=== PATIENT | female | born 1950 | race Caucasian/White ===

== ENCOUNTER 2018-05-07 10:56 | Day surgery (SDC) | payer MEDICARE, OTHER, SELFPAY ==
--- NOTE | 2018-05-07 | PATH_ITS ---
[facility] Accession Number: [id number] . 01 Material submitted: . PART A: ASCENDING COLON POLYP PART B: TRANSVERSE COLON POLYP . 02 Diagnosis: A. Ascending Colon, Polyp, Biopsy: Tubular adenoma. . B. Transverse Colon, Polyp, Biopsy: Tubular adenoma. MRV/05/08/2018 . 02 Electronically signed: . Nicolasa Nunes MD, Pathologist NPI- [id number] . 01 Gross description: . Received two formalin-filled containers, both labeled with the patient's name: . A. In a container labeled ascending colon polyp, the specimen consists of a 0.3 cm portion of tissue, entirely submitted in cassette A. B. In a container labeled transverse colon polyp, the specimen consists of a 0.7 cm portion of tissue, entirely submitted in cassette B. ([id number]) /FRR . 02 Pathologist provided ICD-10: D12.2, D12.3 . 02 CPT . 330892, [id number] Performed at: 01 [facility] [address] [facility], [place], [place] [id number] MD Mahesh Valentine MD Phone: [phone] Performed at: 02 [facility] [address] [place], [place] [id number] MD Nicolasa Nunes MD Phone: [phone]
[2018-05-07] MEDS: SODIUM CHLORIDE 0.9% 1,000 ML 100 ML IV (11:48)
[2018-05-07] MEDS: AMPICILLIN 2,000 MG in SODIUM CHLORIDE 0.9% 100 ML 200 ML IV (11:50)
[2018-05-07 11:51] VITALS: BP 148/92; PULSE 76; RESP 16; TEMP 37.4; O2SAT 98; BMI 21.4
--- NOTE | 2018-05-07 13:04 | PM.HP.1 ---
History of Present Illness Date Patient Seen: 05/07/18 Time Patient Seen: 13:04 Chief complaint: [id number] COLONOSCOPY/EGD W/POSS BX Narrative: dyspepsia, abdominal pain, abnormal CT abdomen Patient History Family & Social History Social History: household members none Meds Home Medications Medication Instructions Recorded Confirmed Type [CALCIUM + D] 1 tab PO QDAY #0 05/31/17 History [FLAX SEED OIL] 3,000 mg PO QDAY #0 05/31/17 History [GARLIC OIL] 1,000 mg PO QDAY #0 05/31/17 History [GLUCOSAMINE/CONDROIT] 1,500 - 1,700 tab PO QDAY #0 05/31/17 History cholecalciferol (vitamin D3) 800 unit PO QDAY #0 05/31/17 History [Vitamin D3] diclofenac sodium [Voltaren] 1 demetrius TOPICAL QDAYP PRN #0 05/31/17 History fluticasone [Flonase Allergy 1 spray INTRANASAL BID #0 05/31/17 History Relief] hydrocodone-acetaminophen 0.5 tab PO PRN PRN #0 MDD 2 05/31/17 05/07/18 History lutein 20 mg PO QDAY #0 05/31/17 History lysine [L-Lysine] 500 mg PO QDAYP #0 05/31/17 History Acetaminophen Extra Strength 500 mg PO TID 05/07/18 05/07/18 History Fish Oil 1,000 mg PO DAILY 05/07/18 05/07/18 History Multi Vitamin 1 tab PO DAILY 05/07/18 05/07/18 History diphenhydramine HCl 50 mg PO DAILY 05/07/18 05/07/18 History fexofenadine 180 mg PO DAILY PRN 05/07/18 05/07/18 History hyoscyamine sulfate 0.125 mg PO Q6H PRN 05/07/18 05/07/18 History omeprazole 20 mg PO BID 05/07/18 05/07/18 History simethicone 125 mg PO TID 05/07/18 05/07/18 History turmeric 500 mg PO DAILY 05/07/18 05/07/18 History Allergies Allergy/AdvReac Type Severity Reaction Status Date / Time hydromorphone [HYDROMORPHONE] Allergy Unknown Unverified 08/07/17 11:47 meperidine [From DEMEROL] Allergy Unknown Unverified 08/07/17 11:47 Review of Systems Review of Systems All systems reviewed & are unremarkable except as noted in HPI and below Exam Vital Signs (past 8 hours): - 05/07/18 11:51 Temperature 99.3 F Pulse Rate 76 Respiratory Rate 16 Blood Pressure 148/92 H Pulse Oximetry 98 Oxygen Delivery Method Room Air Narrative Exam Narrative: gen aaox3, nad heent anicteric cv rrr, n murmurs pulm ctab abd s, nd, nabs, mildly tender in RLQ ext 2+ pulses, no edema Assessment & Plan Plan: Assessment/Plan Narrative: dyspepsia, abdominal pain, abnormal CT abd EGD and colonoscopy
--- NOTE | 2018-05-07 14:03 | PM.OP.ENDO ---
Operative Date/Time/Diagnoses Date of procedure: 05/07/18 Time of procedure: 01:55 Procedure & Clinicians Study performed: EGD Same procedure as scheduled: Yes Indications: Dyspepsia, abdominal pain, suspected GERD Surgeon: Terrence Martines Procedure Notes Procedure in detail: Sedation: 5 mg of Versed, 150 mcg fentanyl Prior to the procedure, a history and physical was performed and patient medications and allergies were reviewed. Preprocedure nursing history and assessment was reviewed. Patient identification and proposed procedure were verified by the physician and the nurse in the room. The physical status of the patient was reassessed after the procedure. After informed consent was obtained including risks, benefits, and alternatives, scope was passed under direct vision. Throughout the procedure, the patient's blood pressure, pulse, and oxygen saturations were monitored continuously. The upper endoscope was introduced through the mouth and advanced to the 2nd portion of the duodenum. Retroflexion was performed in the stomach. The patient tolerated the procedure well Esophagus: The esophagus was grossly unremarkable. Z-line was regular and located at 40 cm from the incisors Stomach: The stomach was grossly normal in appearance. Duodenum: The examined portion of the duodenum was normal appearing Sedation minutes: 10 Complications: other (No complications. No blood loss.) Plan for aftercare: Colonoscopy today Resume home medications Antireflux diet and lifestyle Return to GI clinic as previously scheduled
[2018-05-07] MEDS: fentaNYL 250 MCG/5 ML INJ IV (14:30)
[2018-05-07] MEDS: MIDAZOLAM 5 MG/5 ML VIAL IV (14:30)
[2018-05-07 14:36] VITALS: BP 116/70; PULSE 66; RESP 17; O2SAT 97
[2018-05-07 14:41] VITALS: BP 117/69; PULSE 68; RESP 15; O2SAT 96
--- NOTE | 2018-05-07 14:43 | P.OP.ENDO_ITS ---
Operative Date/Time/Diagnoses Date of procedure: 05/07/18 Time of procedure: 13:55 Procedure & Clinicians Study performed: Colonoscopy with cold snare and biopsy Same procedure as scheduled: Yes Indications: abnormal CT of the abdomen, RLQ abdominal pain Surgeon: Terrence Martines Procedure Notes Procedure in detail: Prior to the procedure, history and physical was performed , and patient medications and allergies removed. Preprocedure nursing history and assessment was reviewed. Patient identification and proposed procedure were verified by the physician and nurse in the procedure room. Physical status of the patient was reassessed after the procedure. After informed consent was obtained including risks, benefits, and alternatives, the scope was passed under direct vision. Throughout the procedure, the patient's blood pressure, pulse, and oxygen saturations were monitored continuously. The pediatric colonoscope was introduced through the anus and advanced to the terminal ileum and cecum. The patient tolerated the procedure with some associated discomfort. Bowel prep was deemed good and adequate to detect polyps greater than 5 mm. Digital rectal examination and perianal examination were unremarkable. Retroflexion in the rectum revealed grade 2 internal hemorrhoids. The entire colon was markedly tortuous. There was significant looping in the sigmoid colon. A 3 mm sessile polyp was noted in the ascending colon. This was removed with a Jumbo biopsy forceps and retrieved A 7 mm semi sessile polyp was noted in the sigmoid colon and was removed with a cold snare and retrieved. The terminal ileum was normal appearing. Sedation minutes: 26 Complications: other (No complications. Estimated blood loss minimal) Plan for aftercare: Follow-up pathology results Repeat colonoscopy in 5 years for colon cancer screening based on pathology results Resume home medications Resume previous diet Discharge home with escort
[2018-05-07 14:46] VITALS: BP 116/72; PULSE 68; RESP 15; O2SAT 96
[2018-05-07 14:52] VITALS: BP 120/68; PULSE 75; RESP 12; O2SAT 98
[2018-05-07 15:27] VITALS: BP 119/75; PULSE 76; RESP 16; TEMP 36.8; O2SAT 97
== END 2018-05-07 15:32 | disposition home or self-care (01) ==
PROVIDERS: PCP Family Medicine; Visit Provider Internal Medicine
PROC: 0DJ08ZZ Inspection of Upper Intestinal Tract, Via Natural or Artificial Opening Endoscopic (ICD-10-PCS; CPT 43235; principal; 2018-05-07 13:00)
PROC: 0DJD8ZZ Inspection of Lower Intestinal Tract, Via Natural or Artificial Opening Endoscopic (ICD-10-PCS; CPT 45378; 2018-05-07 13:00)
DX: R10.31 Right lower quadrant pain (principal); R19.4 Change in bowel habit; K30 Functional dyspepsia; R93.5 Abnormal findings on diagnostic imaging of other abdominal regions, including retroperitoneum; K64.1 Second degree hemorrhoids; D12.2 Benign neoplasm of ascending colon; D12.3 Benign neoplasm of transverse colon
CPT/HCPCS: 45385; 45380; 43235; 88305; J0290; J2250; J3010

== ENCOUNTER → 2018-05-26 13:55 | Outpatient (CLI) | payer MEDICARE, OTHER, SELFPAY ==
--- NOTE | 2018-05-26 13:59 | DI.CT.S_ITS ---
PROCEDURE: CT ABDOMEN PELVIS W CON INDICATIONS: ABNORMAL FINDING TECHNIQUE: After the administration of oral Volumen contrast and intravenous contrast, 3 mm thick sections acquired from the diaphragm to the symphysis. Coronal and sagittal 3 mm reformatted images acquired through the small and large bowel. For radiation dose reduction, the following was used: automated exposure control, adjustment of mA and/or kV according to patient size. COMPARISON: None. FINDINGS: Image quality: Excellent. ABDOMEN: Lung bases: Mild atelectasis is present at the lung bases. No pleural effusion. Heart is mildly enlarged. Bowel and peritoneum: Isodense oral contrast is present, and contrast enhanced small bowel loops demonstrate normal wall thickness and caliber. The appendix is thin walled and gas filled. Colon loops are also normal in caliber. There is limited visualization of the small bowel and colon within the pelvis given the marked streak artifact from the bilateral hip arthroplasties. No free fluid or air. Solid organs: Liver is normal in size and diffusely hypodense suggesting hepatic steatosis. Gallbladder is unremarkable. Biliary system is non dilated, without findings to suggest primary sclerosing cholangitis. Pancreas enhances normally, without evidence for autoimmune pancreatitis. Spleen is normal in size and enhancement. No adrenal nodules. Kidneys demonstrate normal size and enhancement, without hydronephrosis. Nodes and vessels: No retroperitoneal or mesenteric adenopathy by size criteria. Aorta and inferior vena cava are normal in caliber. Miscellaneous: No ventral hernias. PELVIS: Genitourinary: Bladder wall thickness is normal. Miscellaneous: No inguinal hernias or adenopathy. Bones: No suspicious bony lesions. No vertebral body compression fractures. Bilateral hip arthroplasties are intact. Degenerative changes present within the lumbar spine. IMPRESSION: 1. No acute intra-abdominal findings. Normal appendix. 2. No findings to suggest stenosis, stricture, mucosal thickening, or inflammatory changes of the small bowel or colon.. 3. Hepatic steatosis. Dictated by: Latanya Holland M.D. on 05/26/2018 at 15:51 Approved by: Latanya Holland M.D. on 05/26/2018 at 15:57
[2018-05-26 14:33] LABS: BUN Creatinine Ratio 23.8 (6-22); Blood Urea Nitrogen 19 mg/dL (7-17); Estimated Glomerular Filt Rate > 60.0 mL/min (>60)
== END ==
PROVIDERS: PCP Family Medicine; Visit Provider Internal Medicine
DX: R93.5 Abnormal findings on diagnostic imaging of other abdominal regions, including retroperitoneum (principal); K76.0 Fatty (change of) liver, not elsewhere classified; M47.816 Spondylosis without myelopathy or radiculopathy, lumbar region
CPT/HCPCS: 36415; 74177; 82565; 84520; Q9967

== ENCOUNTER → 2020-03-09 11:58 | Outpatient (CLI) | payer MEDICARE, OTHER, SELFPAY ==
--- NOTE | 2020-03-09 | DI.MRI.S_ITS ---
PROCEDURE: MR CERVICAL SPINE WO CON INDICATIONS: Other cervical disc degeneration, unspecified cerv TECHNIQUE: Noncontrast sagittal T1 spin echo and T2 fast spin echo, sagittal STIR, foraminal oblique sagittal T2 fast spin echo, and axial gradient echo or T2 fast spin echo through the cervical spine. COMPARISON: None. FINDINGS: Image quality: Diagnostic, with note made of motion artifact. Alignment and Curvature: There is reversal of the normal cervical lordosis, with the apex seen at the C5-C6 level. There is minimal anterolisthesis at C3-C4 and C4-C5 and minimal retrolisthesis at C5-C6 and C6-C7. Bone Marrow: Marrow demonstrates normal overall signal. Spinal Cord: Visualized spinal cord has normal size and signal. No cerebellar tonsillar herniation. Paraspinous Soft Tissues: No paravertebral masses. Prevertebral soft tissues are normal in thickness. C2-C3: The disc height is well-preserved. Loss of disc signal is seen at this level. A mild degree of generalized disc osteophyte complex is seen. There is mild right-sided and at least moderate left-sided facet hypertrophy seen. There is moderate left-sided and mild right-sided neural foraminal narrowing seen. The central canal is widely patent. No findings of hardware failure or hardware loosening can be seen. C3-C4: The disc height is well-preserved. Loss of disc signal is seen at this level. Mild to moderate disc osteophyte complex is seen, which is eccentric to the right. There is moderate to prominent right-sided and moderate left-sided facet hypertrophy seen. There is moderate to severe bilateral neural foraminal narrowing seen. No significant central canal narrowing is seen. C4-C5: The disc height is well-preserved. Loss of disc signal is seen at this level. Mild to moderate disc osteophyte complex is seen. There is at least moderate right-sided and [id number] left-sided facet hypertrophy seen. There is at least moderate bilateral neural foraminal narrowing seen. Mild central canal narrowing is seen. C5-C6: At least moderate loss of disc height and disc signal can be seen. Moderate prominent disc osteophyte complex is seen, with a central disc osteophyte protrusion. Prominent uncovertebral joint hypertrophy is seen. Mild to moderate facet hypertrophy can be seen at this level. There is moderate to severe bilateral neural foraminal narrowing seen. At least moderate central canal narrowing is seen, as on series 4, image 27. There is associated mass effect upon the ventral spinal cord. C6-C7: There is at least moderate loss of disc height and disc signal seen. Moderate disc osteophyte complex is seen, which is eccentric to the left. Uncovertebral joint hypertrophy is seen at this level. Mild to moderate facet hypertrophy is seen. There is moderate to severe bilateral neural foraminal narrowing seen, left worse than right. At least moderate central canal narrowing is seen. There is associated mass effect upon the ventral spinal cord. C7-T1: The disc height is well-preserved. Loss of disc signal is seen at this level. A mild degree of generalized disc osteophyte complex is seen. There is mild left-sided and no right-sided neural foraminal narrowing seen. The central canal is widely patent. IMPRESSION: Multiple levels of cervical spine degenerative change are seen, which are overall worst at the C5-C6 level. Dictated by: Kenroy Gongora M.D. on 03/09/2020 at 12:50 Approved by: Kenroy Gongora M.D. on 03/09/2020 at 12:55
== END ==
PROVIDERS: PCP Internal Medicine; Referring Provider Internal Medicine; Visit Provider Orthopaedic Surgery
DX: M47.22 Other spondylosis with radiculopathy, cervical region (principal)
CPT/HCPCS: 72141

== ENCOUNTER → 2021-03-13 08:03 | Outpatient (CLI) | payer MEDICARE, OTHER, SELFPAY ==
--- NOTE | 2021-03-13 | DI.US.S_ITS ---
PROCEDURE: US RENAL COMPLETE INDICATIONS: RECURRING UTI TECHNIQUE: Real-time scanning was performed of the kidneys and bladder, with image documentation. COMPARISON: None. FINDINGS: Kidneys: Kidneys are normal in size. Right kidney measures 9.9 cm long; left kidney measures 10.5 cm long. Right renal cortical thickness is 1.4 cm; left renal cortical thickness is 1.6 cm. Renal cortical echotexture is normal. No hydronephrosis or nephrolithiasis. No suspicious solid mass lesions. Bladder: Pre-void bladder volume is 321 mL. Post-void residual is 38 mL. Pre-void images demonstrate no intraluminal masses or stones. On pre-void images, both the right and left ureteral jets are noted with color Doppler interrogation. (Of note, ureteral jets may not be detectable in up to 25% of cases due to insufficient differences in specific gravity between ureteral and bladder urine). Miscellaneous: No free pelvic fluid. IMPRESSION: Normal renal sonogram. Dictated by: Beverly Luna MD, PhD on 03/13/2021 at 10:14 Approved by: Beverly Luna MD, PhD on 03/13/2021 at 10:14
== END ==
PROVIDERS: PCP Internal Medicine; Referring Provider Physician Assistant; Visit Provider Physician Assistant
DX: N39.0 Urinary tract infection, site not specified (principal); R31.9 Hematuria, unspecified
CPT/HCPCS: 76770

== ENCOUNTER → 2021-07-19 09:19 | Outpatient (CLI) | payer MEDICARE, OTHER, SELFPAY | PROVIDERS: PCP Family Medicine; Referring Provider Student in an Organized Health Care Education/Training Program; Visit Provider Student in an Organized Health Care Education/Training Program | DX: J32.9 Chronic sinusitis, unspecified (principal); Z53.9 Procedure and treatment not carried out, unspecified reason ==

== ENCOUNTER → 2021-07-24 14:50 | Outpatient (CLI) | payer MEDICARE, OTHER, SELFPAY ==
--- NOTE | 2021-07-24 14:52 | DI.CT.S_ITS ---
PROCEDURE: CT SINUS SCREEN WO CON INDICATIONS: Chronic pansinusitis TECHNIQUE: Noncontrast 3.0 mm axial images acquired from the frontal sinuses to the mid-sella, with coronal and sagittal reformats. For radiation dose reduction, the following was used: automated exposure control, adjustment of mA and/or kV according to patient size. COMPARISON: None. FINDINGS: Image quality: Excellent. Maxillary Sinuses: No bony remodeling or destruction. Sinuses are clear. Ethmoid Air Cells: No bony remodeling or destruction. Sinuses are clear. Sphenoid Sinuses: No bony remodeling or destruction. Sinuses are clear. Frontal Sinuses: No bony remodeling or destruction. Sinuses are clear. Ostiomeatal Complexes: Ostiomeatal complexes are patent, yet there constitutionally narrowed. There are Shima cells seen on the right. Miscellaneous: Visualized intra-orbital contents are normal. No lenora bullosa or paradoxical turbinate curvature. There is minimal to mild leftward nasal septal deviation. IMPRESSION: No significant active paranasal sinus disease. Constitutionally narrowed ostiomeatal complexes. Minimal to mild leftward nasal septal deviation. Dictated by: Kenroy Gongora M.D. on 07/24/2021 at 14:43 Approved by: Kenroy Gongora M.D. on 07/24/2021 at 14:44
== END ==
PROVIDERS: PCP Family Medicine; Referring Provider Otolaryngology; Visit Provider Otolaryngology
DX: G44.89 Other headache syndrome (principal); J32.4 Chronic pansinusitis; R51.9 Headache, unspecified
CPT/HCPCS: 70486

== ENCOUNTER 2023-07-08 10:36 | Day surgery (SDC) | payer MEDICARE, OTHER, SELFPAY ==
[2023-07-08 12:17] VITALS: BP 160/101; PULSE 96; RESP 16; TEMP 36.8; O2SAT 98
--- NOTE | 2023-07-08 12:38 | PM.HP.1 ---
History of Present Illness History of Present Illness Date Patient Seen: 07/08/23 Time Patient Seen: 12:38 Chief complaint: Colonoscopy Narrative: 73-year-old female with a personal history of adenomatous colon polyps. She is here for surveillance colonoscopy today. She reminds me that she has a tortuous colon. [facility] Social History household members: none Smoking Status: Never smoker alcohol intake: never Meds Home Medications and Allergies Home Medications Medication Instructions Recorded Confirmed Type [CALCIUM + D] 1 tab PO QDAY ##0 05/31/17 History [FLAX SEED OIL] 3,000 mg PO QDAY ##0 05/31/17 History [GARLIC OIL] 1,000 mg PO QDAY ##0 05/31/17 History [GLUCOSAMINE/CONDROIT] 1,500 - 1,700 tab PO QDAY ##0 05/31/17 History cholecalciferol (vitamin D3) 10 800 unit PO QDAY ##0 05/31/17 History mcg (400 unit) capsule (Vitamin D3) diclofenac sodium 1 % topical gel 1 demetrius topical QDAYP PRN Pain, 05/31/17 History (Voltaren) Moderate ##0 fluticasone propionate 50 1 spray intranasal BID ##0 05/31/17 History mcg/actuation nasal spray,suspension (Flonase Allergy Relief) hydrocodone 7.5 mg-acetaminophen 0.5 tab PO PRN PRN Pain (Scale 05/31/17 07/08/23 History 325 mg tablet Score 7-10) ##0 lutein 20 mg tablet 20 mg PO QDAY ##0 05/31/17 History lysine 500 mg tablet (L-Lysine) 500 mg PO QDAYP ##0 05/31/17 History Acetaminophen Extra Strength 500 mg PO TID 05/07/18 07/08/23 History Fish Oil 1,000 mg PO DAILY 05/07/18 05/07/18 History Multi Vitamin 1 tab PO DAILY 05/07/18 05/07/18 History diphenhydramine HCl 50 mg PO DAILY 05/07/18 07/08/23 History fexofenadine 180 mg PO DAILY PRN Allergy 05/07/18 07/08/23 History Symptoms hyoscyamine sulfate 0.125 mg PO Q6H PRN 05/07/18 07/08/23 History Gastrointestinal Spasms Or Cramping omeprazole 20 mg PO BID 05/07/18 07/08/23 History simethicone 125 mg PO TID 05/07/18 05/07/18 History turmeric 500 mg PO DAILY 05/07/18 05/07/18 History Allergies Allergy/AdvReac Type Severity Reaction Status Date / Time hydromorphone [HYDROMORPHONE] Allergy Unknown Verified 07/08/23 12:08 meperidine [From DEMEROL] Allergy Unknown Verified 07/08/23 12:08 Review of Systems Review of Systems ROS: Yes All systems reviewed with the patient and are negative except as otherwise documented Exam Vital Signs (past 8 hours): - 07/08/23 12:17 Temperature 98.2 F Pulse Rate 96 H Respiratory Rate 16 Blood Pressure 160/101 H Pulse Oximetry 98 Oxygen Delivery Method Room Air Oxygen Delivery Method Room Air Const General: cooperative HENMT Head: normal to inspection Eyes General: appearance normal, both eyes and all related structures Neck Neck: normal visual inspection Chest Chest: normal inspection of the chest Resp Effort & Inspection: normal respiratory effort Cardio Rate: regular rate GI Inspection: normal to inspection Skin General: no rashes or lesions noted Neuro General: patient alert and patient awake Extrem General: normal to inspection and no pedal edema Psych Appearance: grossly normal Assessment & Plan Assessment & Plan narrative: 73-year-old female. Personal history of adenomatous colon polyps. Colonoscopy is pursued today.
[2023-07-08] MEDS: LACTATED RINGERS 1,000 ML 84 ML IV (12:41)
--- NOTE | 2023-07-08 14:10 | PM.OP.COLON ---
Operative Date/Time/Diagnoses Date of procedure: 07/08/23 Time of procedure: 14:10 Pre-op diagnosis: Personal history of colon polyps Post-op diagnosis: same Procedure & Clinicians Study performed: Colonoscopy Same procedure as scheduled: Yes Indications: Personal history of colon polyps Surgeon: Mendez Concepcion Procedure Notes SCOAP/Timeout: Done Procedure in detail: After the risks and benefits were explained, written and verbal informed consent was obtained. The patient was brought into the procedure room and placed into the left lateral decubitus position. Please see anesthesia notes for sedation details. Digital rectal examination was accomplished. The scope was introduced into the patient and advanced under direct visualization to the cecum as identified by the appendiceal orifice and ileocecal valve. The scope was slowly withdrawn to carefully examine the mucosa for any defects or lesions. Comprehensive imaging was accomplished throughout the rectum including the dentate line. The colon was decompressed, the scope was then removed from the patient who tolerated the procedure well. Pediatric colonoscope Bowel prep adequate 22 modifier is requested. This was an extremely difficult procedure secondary to profound colon tortuosity. Procedure time was as a consequence quite prolonged. Scope withdrawal time: 11 minutes Sedation minutes: 47 Specimen(s): none sent Complications: none Impression: The sigmoid and for the most part the entire colon was grossly tortuous. Navigation was extremely difficult. It took 36 minutes to arrive in the cecum. There were some scattered diverticula in the sigmoid. I did not appreciate any significant polyps mass lesions or inflammatory features throughout. Endoscopic diagnosis 1. Tortuous colon 2. Diverticulosis Post-procedure Plan for aftercare: In the future, consider noninvasive colon cancer screening techniques. Perhaps a virtual colonography in 7 years could be considered. Disposition: PACU
[2023-07-08 14:11] VITALS: BP 129/80; PULSE 73; RESP 18; TEMP 36.4; O2SAT 100
[2023-07-08 14:15] VITALS: BP 141/89; PULSE 75; RESP 16; O2SAT 100
[2023-07-08 14:20] VITALS: BP 116/84; PULSE 77; RESP 16; O2SAT 98
[2023-07-08 14:25] VITALS: PULSE 73; RESP 18; TEMP 36.4; O2SAT 98
== END 2023-07-08 14:35 | disposition home or self-care (01) ==
PROVIDERS: PCP Family Medicine; Referring Provider Internal Medicine Gastroenterology; Visit Provider Internal Medicine Gastroenterology
PROC: 0DJD8ZZ Inspection of Lower Intestinal Tract, Via Natural or Artificial Opening Endoscopic (ICD-10-PCS; CPT 45378; principal; 2023-07-08 11:30)
DX: Z12.11 Encounter for screening for malignant neoplasm of colon (principal); Z86.010 Personal history of colon polyps; K57.30 Diverticulosis of large intestine without perforation or abscess without bleeding
CPT/HCPCS: G0105; J2704

== ENCOUNTER → 2024-09-07 13:36 | Outpatient (CLI) | payer MEDICARE, OTHER, SELFPAY ==
--- NOTE | 2024-09-07 13:42 | DI.CT.S_ITS ---
PROCEDURE: CT SHOULDER RIGHT WITHOUT CON INDICATIONS: pain in right shoulder TECHNIQUE: Noncontrast 0.75 mm thick sections acquired from the acromioclavicular joint to the inferior scapula, with coronal and sagittal reformatting. COMPARISON: None. FINDINGS: Image quality: Excellent. Bones: Moderate acromioclavicular joint osteoarthritis is seen with joint space narrowing, subchondral sclerosis and marginal osteophyte formation. Moderate to severe glenohumeral joint osteoarthritic changes also seen with joint space narrowing, subchondral sclerosis and marginal osteophyte formation. No acute fracture or dislocation. No suspicious bony lesions. The visualized right ribs are intact. Soft tissues: There is no gross full-thickness rotator cuff tendon rupture. No significant rotator cuff muscle atrophy is seen on sagittal images. No abnormal soft tissue calcifications. Moderate joint effusion and subacromial subdeltoid bursal fluid is seen, no calcified intra-articular loose bodies. There is no axillary lymphadenopathy by size criteria. Visualized right lung field is clear. IMPRESSION: 1. Study is for surgical planning. 2. Moderate to severe glenohumeral joint osteoarthritis and moderate acromioclavicular joint osteoarthritis. No acute shoulder fracture or dislocation. No suspicious bony. 3. No full-thickness rotator cuff tendon rupture. No significant rotator cuff muscle atrophy. Small to moderate amount of joint effusion and subacromial subdeltoid bursal fluid. No calcified intra-articular loose bodies. Dictated by: Fabricio Rodas M.D. on 09/08/2024 at 2:40 Approved by: Fabricio Rodas M.D. on 09/08/2024 at 2:46
== END ==
PROVIDERS: PCP Family Medicine; Referring Provider Orthopaedic Surgery; Visit Provider Orthopaedic Surgery
DX: M19.011 Primary osteoarthritis, right shoulder (principal); M25.411 Effusion, right shoulder; M25.511 Pain in right shoulder
CPT/HCPCS: 73200